=== PATIENT | male | born 1965 | race Caucasian/White ===

== ENCOUNTER 2018-01-13 12:11 | Day surgery (SDC) | payer BC ==
[2018-01-09 15:56] VITALS: BMI 25.0
[~2018-01-13 12:11] MED LIST: LACTATED RINGERS 1,000 ML IV SCH
[2018-01-13 13:08] VITALS: RESP 16; TEMP 97.7
[2018-01-13] MEDS ORDERED: LIDOCAINE 1% INJ 10MG/ML (20 ML MDV) ONE (13:47)
[2018-01-13] MEDS ORDERED: PROPOFOL 10 MG/ML 20 ML VIAL IV ONE (13:47)
--- NOTE | 2018-01-13 14:18 | P.PCN ---
Date of Procedure: 01/13/18 Procedure(s) Performed: Procedure: Total colonoscopy. Preoperative diagnosis: Screening for neoplasia. Postoperative diagnosis: Exam within normal limits. Preparation: HalfLytely prep. Sedation: Was provided by anesthesia. Brief clinical history: The patient is a 52-year-old male who is scheduled for this evaluation for screening for neoplasia age being his risk factor. He had a prior exam more than 10 years ago. At this time, he has no abdominal complaints, bleeding or anemia. He does have issues with hemorrhoids that intermittently gives him pain or bleeding. Procedure: With the patient on his left lateral decubitus position and after informed consent and adequate sedation, the perianal area was inspected and it did not show any fissures or fistulas. There were no masses felt on digital rectal examination. The Olympus CFQ 160L video colonoscope was then inserted in the rectum in the usual fashion and advanced to the cecum. The mucosa appeared healthy. No obvious polyps or tumors were seen. No obvious diverticular disease or other pathology. I retroflexed the endoscope in the rectum before the endoscope was withdrawn. Low-grade internal hemorrhoids were noted with no evidence of bleeding. The patient tolerated the procedure well. Plan: The patient was reassured. Discussed dietary measures and local care for hemorrhoids. He will follow up with you as planned and I recommended repeat exam in 10 years.
[2018-01-13 14:41] VITALS: BP 129/90; PULSE 55
== END 2018-01-13 14:47 | disposition home or self-care (01) ==
LOC: ORWHC2ENDO 12:11
DX: Z12.11 Encounter for screening for malignant neoplasm of colon (principal); K64.8 Other hemorrhoids
CPT/HCPCS: J2001; J2704; G0121; 45378